=== PATIENT | female | born 1990 | race Caucasian/White ===

== ENCOUNTER 2018-03-01 23:12 | Emergency (ER) | payer OTHER ==
[~2018-03-01] VITALS: Ht 160 cm; Wt 103.9 kg
[2018-03-01 23:15] VITALS: BP 148/69
[2018-03-01] MEDS ORDERED: NACL 0.9% 1,000 ML IV ONE (23:46)
[2018-03-01] MEDS ORDERED: diphenhydrAMINE 50 MG/ML VIAL IVP ONE (23:50)
[2018-03-01] MEDS ORDERED: PROCHLORPERAZINE 10 MG/2 ML VIAL IVP ONE (23:50)
[2018-03-02 00:01] LABS: EOSINOPHILS # (AUTO) 0.2 K/uL (0-0.4); LYMPHOCYTES # (AUTO) 1.6 K/uL (2.5-16.5); MONOCYTES # (AUTO) 0.6 K/uL (0.8-1.0)
[2018-03-02 00:05] LABS: BASOPHILS % (AUTO) 0.1 % (0.0-2.0); EOSINOPHILS % (AUTO) 3.8 % (0.0-4.0); HEMATOCRIT 32.8 % (36-48); MEAN CORPUSCULAR HEMOGLOBIN 19 pg (27-31); MEAN CORPUSCULAR HGB CONC 31 g/dL (33-37); MEAN CORPUSCULAR VOLUME 62.9 fL (80-94); NEUTROPHILS # (AUTO) 4.2 K/uL (1.8-7.7); NEUTROPHILS % (AUTO) 63.1 % (42.2-75.2); PLATELET COUNT (AUTO) 408 K/uL (140-450); RED BLOOD CELL COUNT(AUTO) 5.21 MIL/uL (4.20-5.40); RED CELL DISTRIBUTION WIDTH 17.5 % (11.6-13.7); WHITE BLOOD COUNT (AUTO) 6.6 K/uL (4.8-10.8)
--- NOTE | 2018-03-02 00:06 | NUR ---
27Y F BIB SELF C/O YAN FOR 4 MONTHS, PT DENIES ANY DIZZINESS OR BLURRED VISION. PT AAOX4 BREATHING IS UNLABORED AND EVEN. PT AMBULATED TO ER BED 12 WITH STEADY GAIT. PT DENIES ANY MEDICAL HX OR ALLERGIES.
--- NOTE | 2018-03-02 00:10 | NUR ---
27YO F PRESENT TO THE ED WITH CO HEADACH PT STATE THAT SHE HAST HAD A HEADACH FOR 4 MO. SKIN IS PINK/WARM/DRY; AAOX4 WITH EVEN AND STEADY GAIT; LUNGS CLEAR BL; HR EVEN AND REGULAR; PT DENIES ANY FEVER, CP, SOB, OR COUGH AT THIS TIME; PATIENT STATES PAIN OF 8/10 AT THIS TIME; VSS; PATIENT POSITIONED FOR COMFORT; HOB ELEVATED; BEDRAILS UP X2; BED DOWN. ER MD MADE AWARE OF PT STATUS.
[2018-03-02 00:15] LABS: ANION GAP 15.2 (8-16); CARBON DIOXIDE 21.7 mmol/L (21-32); CREATININE 0.6 mg/dL (0.6-1.3); POTASSIUM 3.9 mmol/L (3.5-5.1)
[2018-03-02 01:19] VITALS: BP 126/78
--- NOTE | 2018-03-02 01:24 | NUR ---
Patient discharged with v/s stable BY DR RANGEL. Written and verbal after care instructions given and explained BY DR RANGEL. Patient verbalized understanding. Ambulatory with steady gait. All questions addressed prior to discharge. Advised to follow up with PMD.
== END 2018-03-02 00:48 | disposition home or self-care (01) ==
LOC: MED 23:12
DX: R51 Headache (principal)
CPT/HCPCS: 36415; 80048; 81002; 81025; 85025; 96361; 96374; 96375; 99284; J0780; J1200